=== PATIENT | male | born 1980 | race Caucasian/White ===

== ENCOUNTER 2024-04-24 17:21 | Emergency (ER) | payer OTHER ==
[2024-04-24 17:37] VITALS: PULSE 63; TEMP 98.3; BMI 27.0
[2024-04-24 20:34] VITALS: BP 122/76; RESP 16
== END 2024-04-24 19:15 | disposition home or self-care (01) ==
LOC: JER 17:21
DX: I16.1 Hypertensive emergency (principal)
CPT/HCPCS: 99283-25; 99285-25